=== PATIENT | male | born 1950 | race Caucasian/White ===

== ENCOUNTER 2022-09-15 12:26 | Inpatient (IN) | payer OTHER ==
[2022-09-15] MEDS ORDERED: Sodium Chloride 0.9% 10 ML Syringe FLUSH PRN (12:44)
[2022-09-15] MEDS ORDERED: Sodium Chloride 0.9% 2.5 ML Syringe FLUSH PRN (12:44)
[2022-09-15 13:13] LABS: BLOOD UREA NITROGEN,BUN 37 mg/dL (7.0-18.0); CARBON DIOXIDE,CO2 23.8 mmol/L (21.0-32.0); CHLORIDE,CL 100 mmol/L (98-107); GLUCOSE RANDOM 102 mg/dL (74-106); LIPASE 74 U/L (73-393); SODIUM,NA 141 mmol/L (136-148)
[2022-09-15 13:14] LABS: ESTIMATED GFR 50 mL/min (>60)
[2022-09-15] MEDS ORDERED: Sodium Chloride 0.9% 1,000 ML IV ONE (14:36)
[2022-09-15] MEDS ORDERED: NS with KCl 40mEq 1,000 ML IV SCH (15:15)
[2022-09-15] MEDS ORDERED: Magnesium Sulfate/Water 2 GM/50 ML Premix Bag IV ONE (15:15)
[2022-09-15] MEDS ORDERED: Thiamine 100 MG in Sodium Chloride 0.9% 100 ML IV SCH (15:30)
[2022-09-15] MEDS ORDERED: Magnesium Sulfate/Water 2 GM in Premix Bag 1 BAG IV ONE (15:45)
[2022-09-15] MEDS ORDERED: Magnesium Sulfate/Water 50 ML ONE (19:31)
[2022-09-15] MEDS: Thiamine 500 MG in Sodium Chloride 0.9% 100 ML IV SCH (19:32)
[2022-09-15] MEDS: Folic Acid 1 MG/0.2 ML UD Syringe SUBCUT SCH (19:33)
[2022-09-15] MEDS ORDERED: NS with KCl 40mEq 1,000 ML ONE (20:17)
[2022-09-16] MEDS: LORazepam 2 MG/ML SDV IVPUSH PRN ×2 (00:09→02:08)
[2022-09-16 06:25] LABS: CARBON DIOXIDE,CO2 19.6 mmol/L (21.0-32.0); POTASSIUM,K 3.6 mmol/L (3.5-5.1)
[2022-09-16] MEDS: Thiamine 500 MG in Sodium Chloride 0.9% 100 ML IV SCH (10:48)
[2022-09-16] MEDS: Folic Acid 1 MG/0.2 ML UD Syringe SUBCUT SCH (10:49)
[2022-09-16] MEDS: Sodium Chloride 0.9% 1,000 ML IV SCH (16:58)
[2022-09-16] MEDS: cefTRIAXone 1 GM in Sodium Chloride 0.9% 50 ML IV SCH (19:33)
[2022-09-17 07:09] LABS: CARBON DIOXIDE,CO2 22.3 mmol/L (21.0-32.0)
[2022-09-17] MEDS ORDERED: Potassium Chloride 20 MEQ Tab.ER PO ONE (08:49)
[2022-09-17] MEDS ORDERED: NS with KCl 40mEq 1,000 ML IV ONE (09:00)
[2022-09-17] MEDS: Folic Acid 1 MG/0.2 ML UD Syringe SUBCUT SCH (10:53)
[2022-09-17] MEDS: Thiamine 500 MG in Sodium Chloride 0.9% 100 ML IV SCH ×3 (12:16→21:10)
[2022-09-17] MEDS: cefTRIAXone 1 GM in Sodium Chloride 0.9% 50 ML IV SCH (20:18)
[2022-09-18] MEDS: Sodium Chloride 0.9% 1,000 ML IV SCH (00:35)
[2022-09-18] MEDS ORDERED: Nystatin Topical Powder 15 GM Bottle TOP PRN (02:52)
[2022-09-18] MEDS: Thiamine 500 MG in Sodium Chloride 0.9% 100 ML IV SCH ×3 (05:01→22:25)
[2022-09-18 06:47] LABS: CARBON DIOXIDE,CO2 22.9 mmol/L (21.0-32.0); POTASSIUM,K 3.4 mmol/L (3.5-5.1)
[2022-09-18] MEDS ORDERED: Potassium Chloride 20 MEQ Tab.ER PO ONE (07:48)
[2022-09-18] MEDS ORDERED: Magnesium Sulfate/Water 2 GM in Premix Bag 1 BAG IV ONE (07:48)
[2022-09-18] MEDS ORDERED: Sodium Chloride 0.9% 10 ML Syringe FLUSH PRN (07:52)
[2022-09-18] MEDS ORDERED: Sodium Chloride 0.9% 2.5 ML Syringe FLUSH PRN (07:52)
[2022-09-18] MEDS: Folic Acid 1 MG/0.2 ML UD Syringe SUBCUT SCH (08:28)
[2022-09-18] MEDS: cefTRIAXone 1 GM in Sodium Chloride 0.9% 50 ML IV SCH (20:54)
[2022-09-19] MEDS: Sodium Chloride 0.9% 1,000 ML IV SCH (00:21)
[2022-09-19] MEDS: Thiamine 500 MG in Sodium Chloride 0.9% 100 ML IV SCH ×3 (06:00→21:02)
[2022-09-19] MEDS: Pantoprazole 40 MG Tab.CR PO SCH (06:41)
[2022-09-19 07:02] LABS: CARBON DIOXIDE,CO2 23.2 mmol/L (21.0-32.0); POTASSIUM,K 3.6 mmol/L (3.5-5.1)
[2022-09-19] MEDS ORDERED: SODIUM CHLORIDE 0.9% IV ONE (09:00)
[2022-09-19] MEDS ORDERED: POTASSIUM PHOSPHATES IV ONE (09:00)
[2022-09-19] MEDS ORDERED: MAGNESIUM SULFATE IV ONE (09:00)
[2022-09-19] MEDS: Folic Acid 1 MG/0.2 ML UD Syringe IV SCH (10:01)
[2022-09-19] MEDS: Acidophilus with Citrus Pectin/L.acidophilus Tab PO SCH (14:29)
[2022-09-19] MEDS: Amoxicillin/Clavulanate K 875-125 MG Tab PO SCH ×2 (14:51→20:19)
[2022-09-20] MEDS: Thiamine 500 MG in Sodium Chloride 0.9% 100 ML IV SCH ×2 (05:07→15:52)
[2022-09-20] MEDS: Pantoprazole 40 MG Tab.CR PO SCH (06:41)
[2022-09-20 07:12] LABS: CARBON DIOXIDE,CO2 23.8 mmol/L (21.0-32.0); POTASSIUM,K 3.6 mmol/L (3.5-5.1)
[2022-09-20] MEDS: Acidophilus with Citrus Pectin/L.acidophilus Tab PO SCH (09:16)
[2022-09-20] MEDS: Folic Acid 1 MG/0.2 ML UD Syringe IV SCH (09:18)
[2022-09-20] MEDS: Amoxicillin/Clavulanate K 875-125 MG Tab PO SCH ×2 (09:18→20:51)
[2022-09-21] MEDS: Pantoprazole 40 MG Tab.CR PO SCH (06:33)
[2022-09-21 06:59] LABS: CARBON DIOXIDE,CO2 24.3 mmol/L (21.0-32.0); POTASSIUM,K 3.8 mmol/L (3.5-5.1)
[2022-09-21] MEDS: Acidophilus with Citrus Pectin/L.acidophilus Tab PO SCH (08:32)
[2022-09-21] MEDS: Amoxicillin/Clavulanate K 875-125 MG Tab PO SCH ×2 (08:33→20:25)
[2022-09-21] MEDS: Phosphorus #1 250 MG Tab PO SCH ×4 (08:33→23:20)
[2022-09-21] MEDS: Thiamine 250 MG in Sodium Chloride 0.9% 100 ML IV SCH (08:33)
[2022-09-21] MEDS: Folic Acid 1 MG Tab PO SCH (08:33)
[2022-09-22 06:28] LABS: CARBON DIOXIDE,CO2 25.9 mmol/L (21.0-32.0); POTASSIUM,K 3.7 mmol/L (3.5-5.1)
[2022-09-22] MEDS: Pantoprazole 40 MG Tab.CR PO SCH (06:38)
[2022-09-22] MEDS: Phosphorus #1 250 MG Tab PO SCH (06:38)
[2022-09-22] MEDS ORDERED: Magnesium Sulfate/Water 2 GM in Premix Bag 1 BAG IV ONE (09:00)
[2022-09-22] MEDS: Thiamine 250 MG in Sodium Chloride 0.9% 100 ML IV SCH (09:14)
[2022-09-22] MEDS: Acidophilus with Citrus Pectin/L.acidophilus Tab PO SCH (09:14)
[2022-09-22] MEDS: Folic Acid 1 MG Tab PO SCH (09:15)
[2022-09-22] MEDS: Amoxicillin/Clavulanate K 875-125 MG Tab PO SCH ×2 (09:15→21:41)
[2022-09-23 06:21] LABS: CARBON DIOXIDE,CO2 27.2 mmol/L (21.0-32.0); POTASSIUM,K 3.8 mmol/L (3.5-5.1)
[2022-09-23] MEDS: Pantoprazole 40 MG Tab.CR PO SCH (06:29)
[2022-09-23] MEDS: Acidophilus with Citrus Pectin/L.acidophilus Tab PO SCH (09:14)
[2022-09-23] MEDS: Folic Acid 1 MG Tab PO SCH (09:15)
[2022-09-23] MEDS: Amoxicillin/Clavulanate K 875-125 MG Tab PO SCH ×2 (09:15→20:14)
[2022-09-23] MEDS: Thiamine 250 MG in Sodium Chloride 0.9% 100 ML IV SCH (09:52)
[2022-09-24] MEDS: Pantoprazole 40 MG Tab.CR PO SCH (06:36)
[2022-09-24 06:55] LABS: CARBON DIOXIDE,CO2 26.6 mmol/L (21.0-32.0); POTASSIUM,K 3.7 mmol/L (3.5-5.1)
[2022-09-24] MEDS: Acidophilus with Citrus Pectin/L.acidophilus Tab PO SCH (10:02)
[2022-09-24] MEDS: Folic Acid 1 MG Tab PO SCH (10:02)
[2022-09-24] MEDS: Thiamine 250 MG in Sodium Chloride 0.9% 100 ML IV SCH (10:03)
[2022-09-24] MEDS: Amoxicillin/Clavulanate K 875-125 MG Tab PO SCH ×2 (10:03→21:04)
[2022-09-24] MEDS: Acetaminophen 325 MG Tab PO PRN (12:14)
[2022-09-25] MEDS: Pantoprazole 40 MG Tab.CR PO SCH (06:46)
[2022-09-25 07:21] LABS: CARBON DIOXIDE,CO2 26.1 mmol/L (21.0-32.0); POTASSIUM,K 3.9 mmol/L (3.5-5.1)
[2022-09-25] MEDS: Acetaminophen 325 MG Tab PO PRN (08:00)
[2022-09-25] MEDS: Acidophilus with Citrus Pectin/L.acidophilus Tab PO SCH (08:01)
[2022-09-25] MEDS: Folic Acid 1 MG Tab PO SCH (08:01)
[2022-09-25] MEDS: Amoxicillin/Clavulanate K 875-125 MG Tab PO SCH (08:03)
[2022-09-25] MEDS: Thiamine 250 MG in Sodium Chloride 0.9% 100 ML IV SCH (09:37)
== END 2022-09-25 14:13 | disposition home or self-care (01) | DRG 897 ==
LOC: MW.ED 12:26 → MW.MS 15:20 → OBSVTOIN 18:21 → MW.MS 18:27
PROVIDERS: ADMIT Internal Medicine; ATTEND Internal Medicine
DX: F10.231 Alcohol dependence with withdrawal delirium (principal); E51.2 Wernicke's encephalopathy; N30.00 Acute cystitis without hematuria; N17.9 Acute kidney failure, unspecified; F10.26 Alcohol dependence with alcohol-induced persisting amnestic disorder; E86.0 Dehydration; R62.7 Adult failure to thrive; Z20.822 Contact with and (suspected) exposure to COVID-19; K09.0 Developmental odontogenic cysts; E87.6 Hypokalemia; E83.42 Hypomagnesemia; E83.39 Other disorders of phosphorus metabolism
CPT/HCPCS: 36415; 70450; 70450-26; 70486; 70486-26; 71045; 71045-26; 72125; 72125-26; 72170; 72170-26; 80048; 80053; 80305-QW; 80307; 81001; 82140; 82550; 82607; 83605; 83690; 83735; 84100; 84484; 85025; 85610; 85730; 87040; 87086; 96360; 97110-GP; 97163-GP; 97530-GP; 99285-25; A9270-GY; J0696; J2060; J3411; J3475; J3480; J3490; J7030; U0002